=== PATIENT | female | born 1970 | race Caucasian/White ===

== ENCOUNTER 2017-03-26 21:17 | Emergency (ER) | payer SELFPAY | END 2017-03-27 01:09 | disposition home or self-care (01) | LOC: FER 21:17 | DX: G43.909 Migraine, unspecified, not intractable, without status migrainosus (principal); Z88.8 Allergy status to other drugs, medicaments and biological substances; Z79.891 Long term (current) use of opiate analgesic | CPT/HCPCS: J1885; J2405; J2765 ==

== ENCOUNTER 2017-04-05 13:13 | Emergency (ER) | payer SELFPAY ==
[2017-04-05 13:57] LABS: BASOPHIL 0.1 % (0-2); EOSINOPHIL 0.6 % (0-5); HGB 15.3 g/dl (12.5-16.0); LYMPHOCYTE 23.8 % (15-48); MCH 31.1 pg (25.0-31.0); MCV 91.5 fL (78.0-100.0); MONOCYTE 8.7 % (0-12); MPV 9.7 fL (6.0-9.5); NEUTROPHIL 66.8 % (41-80); PLT 235 K/uL (150-400); RBC 4.92 M/uL (4.20-5.40); RDW 13.5 % (11.5-14.0)
[2017-04-05 14:24] LABS: ALBUMIN 4.3 g/dL (3.5-5.0); BILIRUBIN - TOTAL 0.5 mg/dL (0.1-1.0); CREATININE 0.9 mg/dL (0.5-1.0); GLOBULIN (CALCULATION) 3.2 g/dL (2.2-4.2); POTASSIUM 4.2 mmol/L (3.5-5.1); TOTAL PROTEIN 7.5 g/dL (6.4-8.3)
[2017-04-05 14:44] LABS: CKMB 1.15 ng/mL (0.97-4.94); TROPONIN T < 0.010 ng/mL
== END 2017-04-05 15:14 | disposition home or self-care (01) ==
LOC: FER 13:13
PROVIDERS: Emergency Medicine
DX: M94.0 Chondrocostal junction syndrome [Tietze] (principal); R53.1 Weakness; R11.0 Nausea; R42 Dizziness and giddiness; I10 Essential (primary) hypertension; Z88.8 Allergy status to other drugs, medicaments and biological substances; Z82.49 Family history of ischemic heart disease and other diseases of the circulatory system; Z98.61 Coronary angioplasty status
CPT/HCPCS: 36415; 71010; 80053; 82550; 82553; 84484; 85025; 93005

== ENCOUNTER 2017-04-06 21:13 | Emergency (ER) | payer SELFPAY | END 2017-04-06 22:42 | disposition home or self-care (01) | LOC: FER 21:13 | DX: M94.0 Chondrocostal junction syndrome [Tietze] (principal); R06.02 Shortness of breath; I10 Essential (primary) hypertension; K21.9 Gastro-esophageal reflux disease without esophagitis | CPT/HCPCS: 36415; 71010; 84484; 85379; 93005; J1885; J2930 ==

== ENCOUNTER 2021-01-31 16:56 | Emergency (ER) | payer OTHER ==
[2021-01-31] MEDS ORDERED: NORCO 5-325 TA1 EACH PO (21:03)
== END 2021-01-31 21:20 | disposition home or self-care (01) ==
LOC: FER 16:56
DX: S32.10XA Unspecified fracture of sacrum, initial encounter for closed fracture (principal); M54.6 Pain in thoracic spine; I10 Essential (primary) hypertension; K21.9 Gastro-esophageal reflux disease without esophagitis; Z88.8 Allergy status to other drugs, medicaments and biological substances; W11.XXXA Fall on and from ladder, initial encounter; Y92.89 Other specified places as the place of occurrence of the external cause; Y99.0 Civilian activity done for income or pay
CPT/HCPCS: 72072; 72220